=== PATIENT | female | born 1965 | race Native Hawaiian/Other Pacific Islander ===

== ENCOUNTER 2017-05-25 22:52 | Emergency (ER) | payer OTHER ==
[~2017-05-25] VITALS: Ht 170.2 cm; Wt 107.5 kg
[2017-05-26] MEDS ORDERED: Keflex500 MG PO (00:40)
[2017-05-26] MEDS ORDERED: IBUP600 PO (00:40)
== END 2017-05-26 00:54 | disposition home or self-care (01) ==
LOC: ER 22:52
DX: S41.112A Laceration without foreign body of left upper arm, initial encounter (principal); Z23 Encounter for immunization; W19.XXXA Unspecified fall, initial encounter; Y93.B2 Activity, push-ups, pull-ups, sit-ups; Y92.39 Other specified sports and athletic area as the place of occurrence of the external cause
CPT/HCPCS: 12002; 90471; 90714; 99283

== ENCOUNTER → 2018-01-13 | Outpatient (CLI) | payer OTHER ==
[~2018-01-13] MED LIST: IBUP600 PO; Keflex500 MG PO
== END | disposition home or self-care (01) ==
LOC: PLD 13:24 → LAB SHORT 13:24
DX: N95.0 Postmenopausal bleeding (principal)
CPT/HCPCS: 88305

== ENCOUNTER → 2018-10-08 | Outpatient (CLI) | payer OTHER | END | disposition home or self-care (01) | LOC: PLD 08:16 → LAB SHORT 08:16 | DX: N95.0 Postmenopausal bleeding (principal) | CPT/HCPCS: 88305 ==